=== PATIENT | female | born 2000 | race Caucasian/White ===

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

== ENCOUNTER 2021-04-17 17:48 | Emergency (ER) | payer SELFPAY | END 2021-04-17 18:35 | disposition home or self-care (01) | LOC: NAV ERS 17:48 | DX: T78.40XA Allergy, unspecified, initial encounter (principal); L29.9 Pruritus, unspecified; E66.9 Obesity, unspecified | CPT/HCPCS: 99283 ==